=== PATIENT | male | born 1950 | race African-American/Black ===

== ENCOUNTER 2017-01-11 16:11 | Outpatient (CLI) | payer OTHER | END 2017-01-11 19:58 | disposition home or self-care (01) | LOC: RAD 16:11 | DX: M54.2 Cervicalgia (principal) ==

== ENCOUNTER 2019-10-25 13:05 | Outpatient (CLI) | payer OTHER | END 2019-10-25 19:24 | disposition home or self-care (01) | LOC: LAB 13:05 | DX: R51 Headache (principal); G62.9 Polyneuropathy, unspecified; M62.81 Muscle weakness (generalized); E11.9 Type 2 diabetes mellitus without complications; I10 Essential (primary) hypertension; E78.00 Pure hypercholesterolemia, unspecified | CPT/HCPCS: 87635; G2023; U0002 ==

== ENCOUNTER 2021-02-17 16:16 | Outpatient (CLI) | payer OTHER | END 2021-02-17 20:41 | disposition home or self-care (01) | LOC: RAD 16:16 | PROVIDERS: ATTEND Family Medicine | DX: M54.89 Other dorsalgia (principal); R05 Cough ==

== ENCOUNTER 2021-10-13 16:09 | Outpatient (CLI) | payer OTHER | END 2021-10-13 19:23 | disposition home or self-care (01) | LOC: RAD 16:09 | PROVIDERS: ATTEND Family Medicine | DX: R07.81 Pleurodynia (principal) ==

== ENCOUNTER 2021-10-28 08:44 | Emergency (ER) | payer OTHER ==
[~2021-10-28] VITALS: Ht 170.2 cm; Wt 75.8 kg
[2021-10-28 09:07] LABS: PLATELET COUNT 255 K/uL (142-355)
[2021-10-28 09:36] LABS: PARTIAL THROMBOPLASTIN TIME 25.6 SECONDS (24.5-33.6)
[2021-10-28 09:45] LABS: POTASSIUM 4.4 mmol/L (3.6-5.2)
[2021-10-28 12:05] VITALS: BP 138/74; TEMP 98
== END 2021-10-28 12:05 | disposition short-term general hospital (02) ==
LOC: ED 08:44
PROVIDERS: Hospitalist
DX: I21.4 Non-ST elevation (NSTEMI) myocardial infarction (principal); E11.65 Type 2 diabetes mellitus with hyperglycemia; I10 Essential (primary) hypertension; Z11.52 Encounter for screening for COVID-19
CPT/HCPCS: 80053; 81002; 82550; 82948; 83880; 84484; 85027; 85379; 85610; 85730; 87635; 93005; 96360; 96374; 96375; 99284; J1815; J2405; U0003

== ENCOUNTER 2021-11-23 16:08 | Outpatient (CLI) | payer OTHER ==
[2021-11-23 17:27] LABS: PLATELET COUNT 610 K/uL (142-355)
== END 2021-11-23 20:39 | disposition home or self-care (01) ==
LOC: LAB 16:08
PROVIDERS: ATTEND Family Medicine
DX: I22.2 Subsequent non-ST elevation (NSTEMI) myocardial infarction (principal); I10 Essential (primary) hypertension; Z79.899 Other long term (current) drug therapy
CPT/HCPCS: 80061; 81002; 82306; 83036; 84439; 84443; 85027

== ENCOUNTER 2021-12-13 09:13 | Outpatient (CLI) | payer OTHER ==
[2021-12-13 09:53] LABS: POTASSIUM 4.4 mmol/L (3.6-5.2)
== END 2021-12-13 18:48 | disposition home or self-care (01) ==
LOC: LAB 09:13
PROVIDERS: ATTEND Family Medicine
DX: I10 Essential (primary) hypertension (principal)
CPT/HCPCS: 80053

== ENCOUNTER 2022-09-20 15:30 | Outpatient (CLI) | payer OTHER | END 2022-09-20 19:02 | disposition home or self-care (01) | LOC: RAD 15:30 | PROVIDERS: ATTEND Family Medicine | DX: R10.9 Unspecified abdominal pain (principal) ==

== ENCOUNTER 2022-12-28 10:45 | Outpatient (CLI) | payer OTHER | END 2022-12-28 19:07 | disposition home or self-care (01) | LOC: RAD 10:45 | PROVIDERS: ATTEND Family Medicine | DX: R10.9 Unspecified abdominal pain (principal); R05.9 Cough, unspecified; M25.511 Pain in right shoulder; M25.522 Pain in left elbow; M25.521 Pain in right elbow ==

== ENCOUNTER 2023-01-04 09:40 | Outpatient (CLI) | payer OTHER ==
[2023-01-04 10:12] LABS: POTASSIUM 4.8 mmol/L (3.6-5.2)
[2023-01-04 10:32] LABS: PLATELET COUNT 342 K/uL (142-355)
== END 2023-01-04 19:05 | disposition home or self-care (01) ==
LOC: LABW 09:40
PROVIDERS: ATTEND Family Medicine
DX: E11.65 Type 2 diabetes mellitus with hyperglycemia (principal); I25.10 Atherosclerotic heart disease of native coronary artery without angina pectoris; F33.0 Major depressive disorder, recurrent, mild; E66.3 Overweight; I21.4 Non-ST elevation (NSTEMI) myocardial infarction; M25.521 Pain in right elbow; M25.522 Pain in left elbow; R10.9 Unspecified abdominal pain; K21.9 Gastro-esophageal reflux disease without esophagitis; E55.9 Vitamin D deficiency, unspecified
CPT/HCPCS: 36415; 80053; 80061; 81002; 82306; 83036; 83735; 84439; 84443; 84550; 85027